=== PATIENT | male | born 1960 | race Caucasian/White ===

== ENCOUNTER 2023-04-20 12:39 | Inpatient (IN) | payer OTHER ==
[~2023-04-20] VITALS: Ht 177.8 cm; Wt 78.1 kg
[2023-04-20 13:24] VITALS: PULSE 120; RESP 20; O2SAT 95
[2023-04-20] MEDS ORDERED: SODIUM CHLORIDE 0.9% 1,000 ML IV ONE ×2 (13:45→17:15)
[2023-04-20 14:38] LABS: Basophils # (auto) 0 10 ^3/uL (0-0.2); Basophils % (auto) 0.2 % (0.0-2.0); Eosinophils # (auto) 0 10 ^3/uL (0-0.8); Hematocrit 48.7 % (41.0-53.0); Hemoglobin 16.5 g/dL (13.5-17.5); Lymphocytes # (auto) 1.4 10 ^3/uL (0.4-5.4); Lymphocytes % (auto) 8.2 % (10.0-50.0); Mean Corpuscular Hemoglobin 32.4 pg (28.0-32.0); Mean Corpuscular Hgb Conc. 33.9 g/dL (32.0-36.0); Mean Corpuscular Volume 95.4 fL (80.0-100.0); Monocytes # (auto) 1.4 10 ^3/uL (0-1.3); Monocytes % (auto) 8.4 % (0.0-12.0); Neutrophils # (auto) 13.9 10 ^3/uL (1.6-8.6); Neutrophils % (auto) 83.2 % (37.0-80.0); Nucleated Red Blood Cells % 0.1 %; Red Blood Cells 5.11 10^6/uL (4.5-5.90); Red Cell Distribution Width 13.1 % (11.8-14.3); White Blood Cell 16.8 10^3/uL (4.4-10.8)
[2023-04-20 15:00] LABS: Anion Gap 11 (5-15); Blood Alcohol < 3.0 mg/dL (<10); Blood Urea Nitrogen 43 mg/dL (7-18); Calcium 9.4 mg/dL (8.5-10.1); Carbon Dioxide 21 mmol/L (21-32); Chloride 115 mmol/L (98-107); Glucose 222 mg/dL (74-106); Magnesium 2.4 mg/dL (1.6-2.6); Potassium 4.1 mmol/L (3.5-5.1); Sodium 147 mmol/L (136-145)
[2023-04-20 15:04] LABS: Alanine Aminotransferase 65 U/L (16-61); Alkaline Phosphatase 70 U/L (45-117); Aspartate Aminotransferase 255 U/L (15-37); BUN/Creatinine Ratio 11.3 (10.0-20.0); GFR African American 21 mL/min; GFR Non-African American 17 mL/min
[2023-04-20] MEDS ORDERED: PIPERACILLIN-TAZOB 3.375GM 100 ML IV ONE (15:30)
[2023-04-20] MEDS ORDERED: SOD CHL 0.45% 1,000 ML IV ONE (16:15)
[2023-04-20] MEDS ORDERED: PANTOPRAZOLE 40 MG/10 ML VIAL INJ IV ONE (16:15)
[2023-04-20] MEDS ORDERED: NITROGLYCERIN 0.4 MG SL TAB SL PRN (16:15)
[2023-04-20] MEDS ORDERED: MORPHINE SULFATE INJ 2 MG/ml SYRG IV PRN (16:15)
[2023-04-20] MEDS ORDERED: ONDANSETRON HCL 4 MG/2 ML VIAL IV PRN (16:15)
[2023-04-20] MEDS ORDERED: ACETAMINOPHEN 325 MG TAB PO PRN (16:15)
[2023-04-20] MEDS ORDERED: VANCOMYCIN PER PHARMACY 0 MG IV SCH (16:30)
[2023-04-20] MEDS ORDERED: VANCOMYCIN 1GM/250ML 250 ML IV ONE (16:45)
[2023-04-20] MEDS: SOD CHL 0.45% 1,000 ML IV SCH (17:33)
[2023-04-20 19:30] VITALS: PULSE 90; RESP 20; O2SAT 94
[2023-04-20 22:01] VITALS: BP 144/86; PULSE 91; RESP 20; TEMP 98.2; O2SAT 93
[2023-04-20 22:03] LABS: Lactic Acid w/Reflex 2.2 mmol/L (0.4-2.0)
[2023-04-20] MEDS: CEFEPIME 1GM/ 50ML 50 ML IV SCH (22:11)
[2023-04-20] MEDS: ASCORBIC ACID 500 MG TAB PO SCH (22:12)
[2023-04-20] MEDS: HEPARIN SODIUM (PORCINE) 5000 UNITS/ML 1ML VIAL SC SCH (22:15)
[2023-04-21] VITALS (9 sets, daily range): BP systolic 130–155; BP diastolic 75–96; PULSE 66–83; RESP 18–19; TEMP 97.6–98.8; O2SAT 97–100
[2023-04-21] MEDS: SOD CHL 0.45% 1,000 ML IV SCH ×3 (02:15→22:15)
[2023-04-21 06:29] LABS: Basophils # (auto) 0.1 10 ^3/uL (0-0.2); Basophils % (auto) 0.4 % (0.0-2.0); Eosinophils # (auto) 0 10 ^3/uL (0-0.8); Eosinophils % (auto) 0.2 % (0.0-7.0); Hemoglobin 15.3 g/dL (13.5-17.5); Lymphocytes # (auto) 2.6 10 ^3/uL (0.4-5.4); Lymphocytes % (auto) 17.1 % (10.0-50.0); Mean Corpuscular Hemoglobin 32.8 pg (28.0-32.0); Mean Corpuscular Hgb Conc. 34.1 g/dL (32.0-36.0); Mean Corpuscular Volume 96.3 fL (80.0-100.0); Monocytes # (auto) 1.1 10 ^3/uL (0-1.3); Monocytes % (auto) 7.3 % (0.0-12.0); Neutrophils # (auto) 11.5 10 ^3/uL (1.6-8.6); Nucleated Red Blood Cells % 0.1 %; Red Blood Cells 4.68 10^6/uL (4.5-5.90); Red Cell Distribution Width 13.4 % (11.8-14.3); White Blood Cell 15.4 10^3/uL (4.4-10.8)
[2023-04-21 06:44] LABS: Albumin 3.4 g/dL (3.4-5.0); Calcium 8.5 mg/dL (8.5-10.1); Potassium 3.6 mmol/L (3.5-5.1)
[2023-04-21 06:47] LABS: BUN/Creatinine Ratio 20.2 (10.0-20.0); Bilirubin, Total 1.9 mg/dL (0.2-1.0); Total Protein 7.5 g/dL (6.4-8.2)
[2023-04-21 06:49] LABS: Lactic Acid w/Reflex 2.4 mmol/L (0.4-2.0)
[2023-04-21] MEDS: ASCORBIC ACID 500 MG TAB PO SCH ×2 (09:24→21:19)
[2023-04-21] MEDS: ZINC SULFATE 220mg CAP or TAB PO SCH (09:24)
[2023-04-21] MEDS: MULTIPLE VITAMIN TAB PO SCH (09:25)
[2023-04-21] MEDS: HEPARIN SODIUM (PORCINE) 5000 UNITS/ML 1ML VIAL SC SCH ×2 (09:26→21:24)
[2023-04-21] MEDS ORDERED: PANTOPRAZOLE 40 MG/10 ML VIAL INJ IV SCH (10:00)
[2023-04-21] MEDS ORDERED: VANCOMYCIN 1GM/250ML 250 ML IV ONE (11:00)
[2023-04-21 19:54] LABS: Urine Bacteria FEW /hpf (None Seen); Urine Blood 1+ /uL (Negative); Urine Clarity Clear (Clear); Urine Color Colorless (Yellow); Urine Mucus FEW (None Seen); Urine Protein, UAD TRACE (Negative); Urine Specific Gravity 1.008 (1.001-1.035); Urine Urobilinogen Normal (Negative); Urine WBC 1 /hpf (0 - 3)
[2023-04-21 20:05] LABS: Alcohol, Urine < 3.0 mg/dL (0-10); Amphetamine Screen, Urine NEGATIVE (NEGATIVE); Barbiturate Scree,Urine NEGATIVE (NEGATIVE); Benzodiazephine Screen, Urine NEGATIVE (NEGATIVE); Cannabinoid Screen, Urine NEGATIVE (NEGATIVE); Cocaine Screen, Urine NEGATIVE (NEGATIVE); Opiate Scree,Urine NEGATIVE (NEGATIVE); Phencyclidine Screen, Urine NEGATIVE (NEGATIVE)
[2023-04-21] MEDS: CEFEPIME 1GM/ 50ML 50 ML IV SCH (21:18)
[2023-04-22] VITALS (7 sets, daily range): BP systolic 124–147; BP diastolic 67–81; PULSE 59–89; RESP 14–19; TEMP 97.4–98.9; O2SAT 94–99
[2023-04-22 06:48] LABS: Basophils # (auto) 0.1 10 ^3/uL (0-0.2); Basophils % (auto) 0.6 % (0.0-2.0); Eosinophils # (auto) 0.2 10 ^3/uL (0-0.8); Eosinophils % (auto) 1.7 % (0.0-7.0); Hematocrit 39.1 % (41.0-53.0); Hemoglobin 13.6 g/dL (13.5-17.5); Lymphocytes # (auto) 1.8 10 ^3/uL (0.4-5.4); Lymphocytes % (auto) 20.5 % (10.0-50.0); Mean Corpuscular Hemoglobin 32.9 pg (28.0-32.0); Mean Corpuscular Hgb Conc. 34.9 g/dL (32.0-36.0); Mean Corpuscular Volume 94.3 fL (80.0-100.0); Monocytes # (auto) 0.7 10 ^3/uL (0-1.3); Monocytes % (auto) 7.7 % (0.0-12.0); Neutrophils % (auto) 69.5 % (37.0-80.0); Red Blood Cells 4.15 10^6/uL (4.5-5.90); Red Cell Distribution Width 12.8 % (11.8-14.3); White Blood Cell 8.6 10^3/uL (4.4-10.8)
[2023-04-22 07:05] LABS: Albumin 2.9 g/dL (3.4-5.0); Calcium 8.2 mg/dL (8.5-10.1); Potassium 4.1 mmol/L (3.5-5.1)
[2023-04-22 07:10] LABS: BUN/Creatinine Ratio 20.9 (10.0-20.0); Bilirubin, Total 0.9 mg/dL (0.2-1.0); Total Protein 5.6 g/dL (6.4-8.2)
[2023-04-22] MEDS: SOD CHL 0.45% 1,000 ML IV SCH ×3 (09:09→21:25)
[2023-04-22] MEDS: cefTRIAXone 1GM/50ML D5W 50 ML IV SCH (09:09)
[2023-04-22] MEDS: MULTIPLE VITAMIN TAB PO SCH (10:05)
[2023-04-22] MEDS: ZINC SULFATE 220mg CAP or TAB PO SCH (10:05)
[2023-04-22] MEDS: ASCORBIC ACID 500 MG TAB PO SCH ×2 (10:05→21:22)
[2023-04-22] MEDS: HEPARIN SODIUM (PORCINE) 5000 UNITS/ML 1ML VIAL SC SCH ×2 (10:10→21:32)
[2023-04-22 11:50] LABS: Hepatitis A Ab IgM Negative
[2023-04-22 11:51] LABS: Hepatitis B Core IgM Negative; Hepatitis B Surface Antigen Negative (Negative)
[2023-04-22 11:52] LABS: Hepatitis C Antibody Negative (Negative)
[2023-04-22] MEDS ORDERED: RISP1TAB63 PO (12:25)
[2023-04-22] MEDS ORDERED: LISI10TA34 PO (12:25)
[2023-04-22] MEDS ORDERED: METF-370 PO (12:25)
[2023-04-22] MEDS ORDERED: OXCA150T3 PO (12:26)
[2023-04-23 05:00] VITALS: BP 131/84; PULSE 78; RESP 16; TEMP 98.2; O2SAT 97
[2023-04-23 08:00] VITALS: PULSE 64; RESP 19
[2023-04-23 09:00] VITALS: BP 136/82; PULSE 77; RESP 16; TEMP 98; O2SAT 97
[2023-04-23] MEDS: cefTRIAXone 1GM/50ML D5W 50 ML IV SCH (09:41)
[2023-04-23] MEDS: ZINC SULFATE 220mg CAP or TAB PO SCH (09:41)
[2023-04-23] MEDS: MULTIPLE VITAMIN TAB PO SCH (09:42)
[2023-04-23] MEDS: OXcarbazepine 300 MG TAB PO SCH ×2 (09:42→21:42)
[2023-04-23] MEDS: ASCORBIC ACID 500 MG TAB PO SCH ×2 (09:42→21:41)
[2023-04-23] MEDS: risperiDONE 1 MG TAB PO SCH ×2 (09:43→21:42)
[2023-04-23] MEDS: HEPARIN SODIUM (PORCINE) 5000 UNITS/ML 1ML VIAL SC SCH ×2 (09:46→21:46)
[2023-04-23] MEDS ORDERED: RISP2TAB28 PO ×2 (10:32)
[2023-04-23] MEDS ORDERED: OXCA150T3 PO ×2 (10:36)
[2023-04-23 13:00] VITALS: BP 129/79; PULSE 78; RESP 19; TEMP 98.5; O2SAT 97
[2023-04-23] MEDS: SOD CHL 0.45% 1,000 ML IV SCH ×2 (14:15→21:42)
[2023-04-23 17:10] VITALS: BP 123/75; PULSE 107; RESP 17; TEMP 97.9; O2SAT 98
[2023-04-24 05:00] VITALS: BP 145/96; PULSE 93; RESP 18; TEMP 98.2; O2SAT 97
[2023-04-24 08:00] VITALS: BP 132/76; PULSE 93; RESP 17; RESP 19; TEMP 98.1; O2SAT 96
[2023-04-24] MEDS: OXcarbazepine 300 MG TAB PO SCH (09:54)
[2023-04-24] MEDS: risperiDONE 1 MG TAB PO SCH (09:54)
[2023-04-24] MEDS: cefTRIAXone 1GM/50ML D5W 50 ML IV SCH (09:54)
[2023-04-24] MEDS: ASCORBIC ACID 500 MG TAB PO SCH (09:54)
[2023-04-24] MEDS: ZINC SULFATE 220mg CAP or TAB PO SCH (09:54)
[2023-04-24] MEDS: HEPARIN SODIUM (PORCINE) 5000 UNITS/ML 1ML VIAL SC SCH (09:54)
[2023-04-24] MEDS: MULTIPLE VITAMIN TAB PO SCH (09:54)
[2023-04-24] MEDS: SOD CHL 0.45% 1,000 ML IV SCH (10:15)
[2023-04-24 12:00] VITALS: BP 149/91; PULSE 85; RESP 16; TEMP 98; O2SAT 98
[2023-04-24] MEDS ORDERED: RISP2TAB62 PO (13:50)
[2023-04-24] MEDS ORDERED: OXCA150T3 PO (13:50)
== END 2023-04-24 15:10 | disposition home or self-care (01) | DRG 872 ==
LOC: EDBD 12:39 → ER 12:39 → TELE 16:10 → TELE-WESTW 21:18
PROVIDERS: ADMIT Internal Medicine; ATTEND Internal Medicine
DX: A41.9 Sepsis, unspecified organism (principal); E87.0 Hyperosmolality and hypernatremia; E87.20 Acidosis, unspecified; N17.9 Acute kidney failure, unspecified; N39.0 Urinary tract infection, site not specified; I48.91 Unspecified atrial fibrillation; N18.9 Chronic kidney disease, unspecified; T67.5XXA Heat exhaustion, unspecified, initial encounter; E86.0 Dehydration; F17.210 Nicotine dependence, cigarettes, uncomplicated; F20.9 Schizophrenia, unspecified; E11.65 Type 2 diabetes mellitus with hyperglycemia; R74.8 Abnormal levels of other serum enzymes; I12.9 Hypertensive chronic kidney disease with stage 1 through stage 4 chronic kidney disease, or unspecified chronic kidney disease; E11.22 Type 2 diabetes mellitus with diabetic chronic kidney disease; X30.XXXA Exposure to excessive natural heat, initial encounter; Z59.00 Homelessness unspecified; Z91.148 Patient's other noncompliance with medication regimen for other reason
CPT/HCPCS: 36415; 70450; 71045; 76705; 78582; 80053; 80074; 80202; 80307; 80320; 81001; 82962; 83036; 83605; 83735; 83880; 83930; 84295; 84484; 85025; 85379; 87040; 87086; 93005; 96361; 96365; 96367; 96375; C9113; G0378; J0696; J2543

== ENCOUNTER 2023-08-23 18:36 | Inpatient (IN) | payer OTHER ==
[~2023-08-23] VITALS: Ht 172.7 cm; Wt 77.3 kg
[~2023-08-23 18:36] MED LIST: LISI10TA34 PO; METF-370 PO; OXCA150T3 PO; RISP2TAB62 PO
[2023-08-24] VITALS (8 sets, daily range): BP systolic 126–166; BP diastolic 69–108; PULSE 75–114; RESP 16–18; TEMP 98–98.6; O2SAT 94–100
[2023-08-24] MEDS ORDERED: DEXTROSE (50%) 50ML SYRG IV PRN (02:30)
[2023-08-24] MEDS ORDERED: ACETAMINOPHEN 325 MG TAB PO PRN (02:30)
[2023-08-24] MEDS ORDERED: ONDANSETRON HCL 4 MG/2 ML VIAL IV PRN (02:30)
[2023-08-24] MEDS ORDERED: NITROGLYCERIN 0.4 MG SL TAB SL PRN (02:30)
[2023-08-24] MEDS ORDERED: MECLIZINE HCL 25 MG TAB PO PRN (02:30)
[2023-08-24] MEDS ORDERED: MORPHINE SULFATE INJ 2 MG/ml SYRG IV PRN (02:30)
[2023-08-24] MEDS ORDERED: hydrALAZINE HCL 20 MG/ML VL IV PRN (02:30)
[2023-08-24] MEDS: ACCU-CHEK COMFORT CURVE STRIP VI SCH ×4 (06:18→22:00)
[2023-08-24] MEDS: InsuLIN REG 1unit/0.01ml Soln (100units/ml) SC SCH ×4 (06:21→22:00)
[2023-08-24 07:15] LABS: Chloride 106 mmol/L (98-107); Sodium 139 mmol/L (136-145)
[2023-08-24 07:16] LABS: Anion Gap 6 (5-15); Calcium 8.7 mg/dL (8.5-10.1); Carbon Dioxide 27 mmol/L (20-30)
[2023-08-24 07:21] LABS: BUN/Creatinine Ratio 9.7 (10.0-20.0); Blood Urea Nitrogen 10 mg/dL (9-23); Glucose 119 mg/dL (74-106)
[2023-08-24 07:27] LABS: Basophils # (auto) 0.1 10 ^3/uL (0-0.2); Basophils % (auto) 0.7 % (0.0-2.0); Eosinophils # (auto) 0.1 10 ^3/uL (0-0.8); Eosinophils % (auto) 1.8 % (0.0-7.0); Hematocrit 43.4 % (41.0-53.0); Hemoglobin 15.1 g/dL (13.5-17.5); Lymphocytes # (auto) 2.3 10 ^3/uL (0.4-5.4); Lymphocytes % (auto) 28.2 % (10.0-50.0); Mean Corpuscular Hemoglobin 33.2 pg (28.0-32.0); Mean Corpuscular Hgb Conc. 34.8 g/dL (32.0-36.0); Mean Corpuscular Volume 95.4 fL (80.0-100.0); Monocytes # (auto) 0.8 10 ^3/uL (0-1.3); Monocytes % (auto) 9.8 % (0.0-12.0); Neutrophils % (auto) 59.5 % (37.0-80.0); Nucleated Red Blood Cells % 0.1 %; Red Blood Cells 4.55 10^6/uL (4.5-5.90); Red Cell Distribution Width 13.3 % (11.8-14.3); White Blood Cell 8.3 10^3/uL (4.4-10.8)
[2023-08-24] MEDS: ASPirin-EC 81 mg tab PO SCH (09:45)
[2023-08-24] MEDS: ENOXAPARIN SOD 40 MG/0.4 ML SYRINGE SC SCH (09:45)
[2023-08-24] MEDS: PANTOPRAZOLE 40 MG/10 ML VIAL INJ IV SCH (09:45)
[2023-08-24] MEDS ORDERED: ATORVASTATIN 20 MG TAB PO SCH (22:00)
[2023-08-25 05:00] VITALS: BP 139/81; PULSE 86; RESP 16; TEMP 98.2; O2SAT 97
[2023-08-25] MEDS: InsuLIN REG 1unit/0.01ml Soln (100units/ml) SC SCH ×3 (06:57→17:00)
[2023-08-25] MEDS: ACCU-CHEK COMFORT CURVE STRIP VI SCH ×3 (06:57→18:56)
[2023-08-25 07:10] LABS: Basophils # (auto) 0 10 ^3/uL (0-0.2); Basophils % (auto) 0.5 % (0.0-2.0); Eosinophils # (auto) 0.1 10 ^3/uL (0-0.8); Eosinophils % (auto) 1.6 % (0.0-7.0); Hematocrit 44.6 % (41.0-53.0); Hemoglobin 15.8 g/dL (13.5-17.5); Lymphocytes # (auto) 2.4 10 ^3/uL (0.4-5.4); Lymphocytes % (auto) 28.5 % (10.0-50.0); Mean Corpuscular Hemoglobin 33.2 pg (28.0-32.0); Mean Corpuscular Hgb Conc. 35.3 g/dL (32.0-36.0); Mean Corpuscular Volume 93.8 fL (80.0-100.0); Monocytes # (auto) 0.7 10 ^3/uL (0-1.3); Monocytes % (auto) 8.9 % (0.0-12.0); Neutrophils % (auto) 60.5 % (37.0-80.0); Nucleated Red Blood Cells % 0.1 %; Red Blood Cells 4.75 10^6/uL (4.5-5.90); Red Cell Distribution Width 13.1 % (11.8-14.3); White Blood Cell 8.3 10^3/uL (4.4-10.8)
[2023-08-25 07:15] LABS: Chloride 104 mmol/L (98-107); Sodium 138 mmol/L (136-145)
[2023-08-25 07:16] LABS: Anion Gap 8 (5-15); Carbon Dioxide 26 mmol/L (20-30)
[2023-08-25 07:17] LABS: Calcium 9.5 mg/dL (8.5-10.1)
[2023-08-25 07:21] LABS: BUN/Creatinine Ratio 13.7 (10.0-20.0); Blood Urea Nitrogen 13 mg/dL (9-23); Glucose 119 mg/dL (74-106)
[2023-08-25 08:00] VITALS: PULSE 100; PULSE 84; RESP 18; O2SAT 96
[2023-08-25 09:00] VITALS: BP 134/73; PULSE 83; RESP 15; TEMP 98.4; O2SAT 96
[2023-08-25] MEDS: ENOXAPARIN SOD 40 MG/0.4 ML SYRINGE SC SCH (09:34)
[2023-08-25] MEDS: PANTOPRAZOLE 40 MG/10 ML VIAL INJ IV SCH (09:34)
[2023-08-25] MEDS: ASPirin-EC 81 mg tab PO SCH (09:34)
[2023-08-25 13:00] VITALS: BP 135/79; PULSE 83; RESP 15; TEMP 98.5; O2SAT 99
[2023-08-25 16:44] VITALS: BP 134/76; PULSE 84; RESP 18; TEMP 36.9; O2SAT 97
[2023-08-25 17:00] VITALS: BP 137/85; PULSE 79; RESP 14; TEMP 98.4; O2SAT 95
== END 2023-08-25 19:00 | disposition home or self-care (01) | DRG 305 ==
LOC: TELE-WESTW 08-24 02:17
PROVIDERS: ADMIT Hospitalist; ATTEND Hospitalist
DX: I16.0 Hypertensive urgency (principal); R42 Dizziness and giddiness; E11.65 Type 2 diabetes mellitus with hyperglycemia; F17.210 Nicotine dependence, cigarettes, uncomplicated; F20.9 Schizophrenia, unspecified; I10 Essential (primary) hypertension; I48.0 Paroxysmal atrial fibrillation; Z82.49 Family history of ischemic heart disease and other diseases of the circulatory system
CPT/HCPCS: 36415; 70551; 80048; 82962; 85025; 93306; 95819; 97110; 97116; 97163; C9113; G0378; J1815